=== PATIENT | male | born 1950 | race Caucasian/White ===

== ENCOUNTER → 2019-09-18 08:05 | Outpatient (POV) | payer MEDICARE, OTHER, SELFPAY | PROVIDERS: PCP Nurse Practitioner Family; Visit Provider Nurse Practitioner Family | DX: Z00.00 Encounter for general adult medical examination without abnormal findings (principal) ==

== ENCOUNTER → 2019-09-19 08:50 | Outpatient (CLI) | payer MEDICARE, OTHER, SELFPAY ==
[2019-09-19 09:52] LABS: Adenovirus F 40/41, stool Not Detected (NotDetected); Astrovirus Not Detected (NotDetected); Campylobacter Not Detected (NotDetected); Clostridium Difficile A/B, PCR Not Detected (NotDetected); Cryptosporidium Not Detected (NotDetected); Cyclospora Cayetanesis Not Detected (NotDetected); Entamoeba histolytica Not Detected (NotDetected); Enteroaggregative E coli Not Detected (NotDetected); Enteropathogenic E coli Not Detected (NotDetected); Enterotoxigenic E coli Not Detected (NotDetected); Giardia lamblia Not Detected (NotDetected); Norovirus Not Detected (NotDetected); Plesimonas Shigalloides, PCR Not Detected (NotDetected); Rotavirus A Not Detected (NotDetected); Salmonella, PCR Not Detected (NotDetected); Sapovirus Not Detected (NotDetected); Shiga-like toxin E coli Not Detected (NotDetected); Shigella Enterovasive E coli Not Detected (NotDetected); Vibrio Cholerae Not Detected (NotDetected); Vibrio, PCR Not Detected (NotDetected); Yersinia Entercolitica, PCR Not Detected (NotDetected)
== END ==
PROVIDERS: PCP Family Medicine; Visit Provider Nurse Practitioner Family
DX: R19.7 Diarrhea, unspecified (principal); B96.20 Unspecified Escherichia coli [E. coli] as the cause of diseases classified elsewhere
CPT/HCPCS: 87506

== ENCOUNTER → 2019-10-21 09:17 | Outpatient (CLI) | payer MEDICARE, SELFPAY ==
[2019-10-21 10:54] LABS: Coronavirus 19 IgG Antibody Negative (Negative); Coronavirus 19 IgM Antibody Negative (Negative)
== END ==
PROVIDERS: Visit Provider Internal Medicine Gastroenterology
DX: Z03.818 Encounter for observation for suspected exposure to other biological agents ruled out (principal); Z12.11 Encounter for screening for malignant neoplasm of colon
CPT/HCPCS: 36415; 86328

== ENCOUNTER 2019-10-23 08:29 | Day surgery (SDC) | payer MEDICARE, OTHER, SELFPAY ==
[2019-10-17 13:15] VITALS: BMI 22.8
[2019-10-23 08:45] VITALS: BP 140/75; PULSE 55; RESP 18; TEMP 36.4; O2SAT 99
[2019-10-23 08:58] VITALS: O2SAT 97
--- NOTE | 2019-10-23 09:02 | HMH.PROC ---
[facility] Procedure Note Procedure Note:: Colonoscopy Procedure Report: Colonoscopy with cold biopsies Endoscopist: Bulmaro Zepeda II, MD Referring physician: Hector Mcgraw MD Date of Procedure: October 23, 2019 Equipment: Olympus 180 variable stiffness pediatric colonoscope Sedation: MAC sedation Indication: Mr. Nieves is a 69-year-old gentleman who is here for diagnostic colonoscopy secondary to a change in bowel habits. He did have a PCR gastrointestinal stool panel on August 29, 2019 that was positive for enteropathogenic E. coli. The patient was started on azithromycin and EnteraGam. He also received dicyclomine and dietary measures. He was initially having up to 12-15 bowel movements daily. More recently, he did see Muriel munroe in the office on September 18, 2019. At that time he was still having some loose bowel movements and diarrhea. Sometimes crampy abdominal discomfort can precede the diarrhea. He had a repeat PCR gastrointestinal stool panel on September 19, 2019 that was normal showing no microbial pathogens. He does have some rare bright red blood on the tissue. He has lost some weight but is now maintaining that weight. He reports no abdominal pain or family history of colon cancer. He did have a normal colonoscopy in May 2009 (by me). Procedure: Prior to the procedure, a history and physical exam was performed, and patient's medications and allergies were reviewed. The risks, benefits and alternatives of the sedation and procedure were discussed with the patient. All questions were answered and informed consent was obtained. The patient was brought to the procedure room. Patient identification and proposed procedure were verified by the physician and the nurse. The patient was placed in a left lateral decubitus position and the scope was passed under direct vision. Throughout the procedure, the patient's blood pressure, pulse, and oxygen saturations were monitored continuously. The colonoscopy was accomplished without difficulty. The patient tolerated the procedure well. Findings: On digital rectal examination there was normal rectal tone. There were no external hemorrhoids. The colonoscope was introduced through the anal canal to the rectum and advanced to the cecum. The ileocecal valve and appendiceal orifice were identified. The scope was advanced a short distance into the ileum which appeared grossly normal. The scope was then withdrawn into the colon. The cecum, ascending and transverse colon and mucosa were grossly normal. Random shallow cold biopsies were taken from the right colon to rule out microscopic colitis. There were mildly scattered diverticuli throughout the descending and sigmoid colon (LEFT colon). There was some mild haustral edema and mucosal erythema focally within the sigmoid colon suggestive of mild diverticular associated colitis. Cold biopsies were taken from the sigmoid colon. The rectum itself was normal. Upon retroflexion within the rectum there were grade 1 internal hemorrhoids. The preparation was excellent throughout with [place] Preparation Score of 9. The cecal time was 12 minutes. Impression: 1. Mild left-sided diverticulosis with mild diverticular associated colitis 2. Grade 1 internal hemorrhoids Plan: I will follow-up the biopsies. The patient is clinically better but still has some chronic diarrhea. We will discuss dietary measures, bulk fiber and probiotic. If the biopsies show evidence of colitis, I would consider budesonide and/or mesalamine. If the biopsies are negative, we will discuss additional treatment options that may include Colestid, dicyclomine or Viberzi.
--- NOTE | 2019-10-23 09:14 | P.PN_ITS ---
[facility] Anesthesia Checklist - Patient Identification Patient Identification: Arm Band - Structural Data Admitted From: Home Planned Operative Procedure/s: colonoscopy Consent for Planned Operative Procedure(s) Verified: Yes Verified Documents: Surgical Consent, History and Physical - NPO Status Verified Time NPO: 00:00 - Additional verifications Anesthesia Reactions: No - Airway Assessment C-Spine Mobility Assessed: Yes (mp2) TMJ Mobility Assessed: Yes Dentition: Good Dentition - Neurological Assessment Level of Consciousness: Awake, Alert - Anesthesia Plan Anesthesia Risk discussed: Yes Anesthesia Plan: Verified ASA Class: III Anesthesia Type: MAC [facility] History I have reviewed the patient's past medical history: Yes Medical History: Reports:: Cancer (prostate), Coronary Artery Disease, Hyperlipidemia, Hypertension Denies:: Diabetes Mellitus Type 1, Diabetes Mellitus Type 2, Internal Pacemaker, MRSA, Seizures *Have you ever received a pneumonia vaccine?: Yes *Have you received a flu vaccine this season?: Yes Anesthesia experience/problems:: nac Other Surgeries: Yes: CABG, Hernia Repair, Other. No: Pacemaker Amputation: No Fractures: No - *Social History Last grade of school completed: Advanced degree Alcohol Intake: never Alcohol Intake Frequency:: a few times a month Substance Use Type: denies use *Occupational Status:: retired Housing: house Household Members: spouse *Travel in the last 8 weeks: None Family Hx:: No significant family history
[2019-10-23 09:25] VITALS: BP 99/66; PULSE 47; RESP 12; TEMP 36.3; O2SAT 98
[2019-10-23 09:35] VITALS: BP 121/61; PULSE 41; RESP 16; O2SAT 99
[2019-10-23 09:45] VITALS: BP 116/68; PULSE 44; RESP 16; O2SAT 98
[2019-10-23 09:55] VITALS: BP 112/64; PULSE 54; RESP 16; TEMP 36.3; O2SAT 100
== END 2019-10-23 10:03 | disposition home or self-care (01) ==
LOC: OUTP 08:33
PROVIDERS: PCP Family Medicine; Visit Provider Internal Medicine Gastroenterology
PROC: 0DJD8ZZ Inspection of Lower Intestinal Tract, Via Natural or Artificial Opening Endoscopic (ICD-10-PCS; CPT 45378; principal; 2019-10-23 09:30)
DX: K64.0 First degree hemorrhoids (principal); K57.30 Diverticulosis of large intestine without perforation or abscess without bleeding; K52.89 Other specified noninfective gastroenteritis and colitis; Z87.19 Personal history of other diseases of the digestive system; Z85.46 Personal history of malignant neoplasm of prostate; I25.10 Atherosclerotic heart disease of native coronary artery without angina pectoris; E78.5 Hyperlipidemia, unspecified; I10 Essential (primary) hypertension; Z95.1 Presence of aortocoronary bypass graft; Z79.82 Long term (current) use of aspirin; Z79.899 Other long term (current) drug therapy; Z79.02 Long term (current) use of antithrombotics/antiplatelets
CPT/HCPCS: 45380; 88305

== ENCOUNTER → 2019-10-30 12:23 | Outpatient (POV) | payer MEDICARE, OTHER, SELFPAY | PROVIDERS: Visit Provider Nurse Practitioner Family | DX: Z00.00 Encounter for general adult medical examination without abnormal findings (principal) ==

== ENCOUNTER → 2020-11-11 14:21 | Outpatient (POV) | payer MEDICARE, OTHER, SELFPAY | PROVIDERS: Visit Provider Nurse Practitioner Family | DX: Z00.00 Encounter for general adult medical examination without abnormal findings (principal) ==

== ENCOUNTER → 2020-12-06 09:14 | Outpatient (CLI) | payer MEDICARE, OTHER, SELFPAY ==
--- NOTE | 2020-12-06 09:24 | CA_ITS ---
APPROVED REPORT Left Lower Extremity Venous Study for Venous Competence., DVT. Hand Filer Balance Wheel: SAMIR Lawrence Lower Extremity Pain: Left Lower Extremity Edema: Left Patient was kicked by a horse 12/04/20. Extensive bruising and swelling in the LLE. 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 He has Von Willebrand disease. Past History DVT : Medications Aspirin ASA 81 mg daily and Xarelto daily. Vein Imaging CFV (L): compressive, spontaneous, phasic, augmentation FEM (L): compressive, spontaneous, phasic, augmentation POP (L): compressive, spontaneous, phasic, augmentation PTV (L): Compressible GSV (L): compressive, spontaneous, phasic, augmentation, SSV (L): Thrombus Peroneals (L):Compressible GAS (L): Compressible Findings No evidence of DVT in the veins scanned of the left lower extremity. SVT in SSV of the LLE. Conclusion No evidence of DVT in the veins scanned of the left lower extremity. SVT in SSV of the LLE. Critical Notification Critical Value: No Physician Notified Date: 12/06/2020 Time: 10:12 Physician Name: Antonieta Maurice Report Read Back Electronically signed by : Arnoldo Walker MD 12/10/2020 09:00:55
--- NOTE | 2020-12-06 09:51 | XR_ITS ---
PROCEDURE: XR TIBIA FIBULA LT 2V CLINICAL INDICATION: LT LEG SWELLING, INJURY OF LLE, VON WILEBRAND DISEASE COMPARISON: No exams were available for comparison FINDINGS: The tibia and fibula appear intact with no evidence of recent or old fracture. Soft tissues appear grossly normal although a subtle soft tissue swelling can be difficult to determine without comparison views of the right leg. Minor degenerative changes are seen at the knee joint with spurring of the tibial spines IMPRESSION: No definite acute findings. Dictated by: Dr. Guillermo Solis MD 12/06/2020 10:24 Dr. Guillermo Solsi MD in [place] 12/06/2020 10:24
== END ==
PROVIDERS: PCP Family Medicine; Visit Provider Nurse Practitioner Family
DX: S89.92XA Unspecified injury of left lower leg, initial encounter (principal); M79.89 Other specified soft tissue disorders; D68.0 Von Willebrand disease
CPT/HCPCS: 73590; 93971